=== PATIENT | female | born 2000 | race Caucasian/White ===

== ENCOUNTER 2019-07-24 11:25 | Emergency (ER) | payer OTHER | END 2019-07-24 12:20 | disposition home or self-care (01) | LOC: ERS 11:25 | DX: O99.512 Diseases of the respiratory system complicating pregnancy, second trimester (principal); J06.9 Acute upper respiratory infection, unspecified; Z3A.16 16 weeks gestation of pregnancy | CPT/HCPCS: 87081; 87430; 99283 ==

== ENCOUNTER 2019-08-21 14:42 | Outpatient (CLI) | payer OTHER ==
--- NOTE | 2019-08-21 16:10 | ULT ---
ULTRASOUND OBSTETRICAL COMPLETE: DATE: 08/21/2019 HISTORY: 19-year-old female. ICD-10: "Z 34.82, encounter for supervision of other normal , [facility]. Comments: Complete anatomy, size and dates, cervical length." FINDINGS: number: lawler lie: Cephalic Maternal cervix: 4.5 cm. Closed. Placenta: Anterior. No placenta previa. Amniotic fluid volume: SAMANTA = 16.5 cm heart rate: 140 bpm The following anatomy is visualized, with no evidence of anomalies: Head, cerebellum, lateral ventricles, four-chamber heart, stomach, kidneys, cord insertion, bladder, cervical spine, thoracic spine, lumbar spine, sacrum, nose and lips, upper extremities, lower extremities, and three-vessel cord. biometry: Biparietal diameter (BPD): 4.8 cm 20 w 5 d Head circumference (HC): 18.1 cm 20 w 4 d Abdominal circumference (AC): 15.2 cm 20 w 3 d Femur length (FL): 3.4 cm 20 w 4 d Average ultrasound age (AUA): 20 w 4 d Estimated date of delivery (YO): 01/04/2020 Estimated weight (EFW): 356 g +/- 52 g IMPRESSION: 1) Live 2nd trimester intrauterine gestation. 2) Estimated gestational age of 20 weeks, 4 days 3) cephalic lie. 4) no anatomic abnormality identified.
== END 2019-08-21 14:43 | disposition home or self-care (01) ==
LOC: BICULT 14:42
PROVIDERS: ATTEND Family Medicine
DX: Z34.82 Encounter for supervision of other normal pregnancy, second trimester (principal); Z3A.20 20 weeks gestation of pregnancy
CPT/HCPCS: 76805